=== PATIENT | female | born 1985 | race Caucasian/White ===

== ENCOUNTER 2016-08-13 11:37 | Emergency (ER) | payer MEDICAID, OTHER ==
[~2016-08-13] VITALS: Ht 170.2 cm; Wt 80.0 kg
[~2016-08-13 11:37] MED LIST: METR500T10 PO; PREN1CAP7 PO
[2016-08-13 11:39] VITALS: BP 117/57; PULSE 78; RESP 20; TEMP 98.5; O2SAT 100
--- NOTE | 2016-08-13 11:58 | PD ---
Physical Exam Date Seen by Provider: Aug 13, 2016 Time Seen by Provider: 11:54 Narrative 30 y/o female patient who states 12 weeks presents with abdominal cramping and vaginal spotting since last night. Pain is 5/10. Hx previous spontaneous miscarriage about a year ago. No fever, Chills, Nausea or Vomitting. Labs Ordered. Patients VS stable. Awaiting Bed Placement. Data Data Last Documented VS Vital Signs Date Time Temp Pulse Resp B/P Pulse Ox O2 Delivery O2 Flow Rate FiO2 08/13/16 11:39 98.5 78 20 117/57 100 Room Air [facility] Medical Record Reviewed: Yes Supervised Visit with TOSHIA: Yes Condition: Stable Celio Amado Aug 13, 2016 11:58
[2016-08-13 12:17] LABS: AUTOMATED NEUTROPHIL # 2.5 TH/MM3 (1.8-7.7); BASOPHIL % 0.2 % (0.0-2.0); EOSINOPHIL # 0.1 TH/MM3 (0-0.4); HEMATOCRIT 35.8 % (35.0-46.0); HEMO FLAGS DIFF FINAL; LYMPH % 37.6 % (9.0-44.0); LYMPHOCYTE # 1.7 TH/MM3 (1.0-4.8); MEAN CELL VOLUME 85.9 FL (80.0-100.0); MEAN CORPUSCULAR HEMOGLOBIN 29.9 PG (27.0-34.0); MEAN CORPUSCULAR HGB CONC 34.8 % (32.0-36.0); MONO % 5.8 % (0.0-8.0); NEUT % 54.4 % (16.0-70.0); PLATELET COUNT 182 TH/MM3 (150-450); RED BLOOD COUNT 4.17 MIL/MM3 (4.00-5.30); RED CELL DISTRIBUTION WIDTH 12.5 % (11.6-17.2); WHITE BLOOD COUNT 4.6 TH/MM3 (4.0-11.0)
[2016-08-13 12:35] LABS: ANION GAP 9 MEQ/L (5-15); AST (GOT) 10 U/L (15-37); BICARBONATE 26.1 MEQ/L (21.0-32.0); BLOOD UREA NITROGEN 10 MG/DL (7-18); CHLORIDE 107 MEQ/L (98-107); GLOMERULAR FILTRATION RATE 86 ML/MIN (>89); POTASSIUM 4.2 MEQ/L (3.5-5.1); SODIUM (NA) 142 MEQ/L (136-145)
[2016-08-13 12:36] LABS: ALT (GPT) 20 U/L (10-53)
[2016-08-13 12:50] LABS: BLOOD, URINE NEG (NEG); GLUCOSE,URINE NEG (NEG); KETONE, URINE NEG (NEG); NITRITE,URINE NEG (NEG); URINE COLOR LIGHT-YELLOW (YELLW/STRAW)
[2016-08-13 12:53] LABS: ALKALINE PHOSPHATASE 51 U/L (45-117); BETA HCG QUANT 4068 MIU/ML (0-5); TOTAL BILIRUBIN ADULT 0.4 MG/DL (0.2-1.0)
[2016-08-13 13:20] LABS: COMMENT (UR) CULT NOT INDICATED; CULTURE IF INDICATED CULT NOT INDICATED; SQUAMOUS EPITHELIAL CELL URINE 0-5 /hpf (0-5); WBC, URINE 0-2 /hpf (0-5)
--- NOTE | 2016-08-13 13:58 | PD ---
HPI Chief Complaint: Related Problem Time Seen by Provider: 13:30 Travel History International Travel<30 days: No Contact w/Intl Traveler<30days: No Traveled to known affect area: No History of Present Illness HPI Patient comes in complaining of lower abdominal cramping and spotting that she awoke with last night. Patient reports she is approximately 12 weeks . Reports symptoms have almost completely resolved denies any bleeding since this, but continues to have intermittent cramps. Patient denies any nausea, vomiting, chest pain, shortness breath, left change in bowel or bladder, or fevers. Patient states she has an appointment with her OB this Sunday. Patient reports gestational age based on previous ultrasound. [facility] Past Medical History Medical History: Denies Significant Hx Diminished Hearing: No Tetanus Vaccination: Never Vaccinated ?: LMP: 05/26 : 4 Para: 2 Miscarriage: 1 Past Surgical History Section: Yes (x2) Gynecologic Surgery: Yes () Social History Alcohol Use: No Tobacco Use: No (QUIT MAY 2016) Substance Use: No Allergies-Medications (Allergen,Severity, Reaction): Coded Allergies: Penicillin (Verified Allergy, Severe, hives, 08/13/16) Uncoded Allergies: CILLINS (Allergy, Severe, Hives, 11/17/11) Reported Meds & Prescriptions Reported Meds & Active Scripts Active Citranatal [place] ( W/O Vit A W/ Fe Fumar) 27-1-260 Mg Cap 1 Cap PO DAILY Review of Systems Except as stated in HPI: all other systems reviewed are Neg Physical Exam Narrative GENERAL: Well-developed, well nourished, in no acute distress, and non-ill appearing. SKIN: Focused skin assessment warm and dry. HEAD: Atraumatic. Normocephalic. EYES: Pupils equal and round. EOMI. No scleral icterus. No injection or drainage. ENT: No nasal bleeding or discharge. Mucous membranes pink and moist. NECK: Trachea midline. Supple. No nuclear rigidity. CARDIOVASCULAR: Regular rate and rhythm. No murmur appreciated. RESPIRATORY: No accessory muscle use. No respiratory distress. Clear to auscultation. Breath sounds equal bilaterally. GASTROINTESTINAL: Abdomen soft, non-tender, nondistended. Hepatic and splenic margins not palpable. Normal bowel sounds 4. No pulsatile mass. MUSCULOSKELETAL: No obvious deformities. No clubbing. No cyanosis. No edema. Full range of motion. NEUROLOGICAL: Awake and alert. No obvious cranial nerve deficits. Motor grossly within normal limits. Normal speech. PSYCHIATRIC: Appropriate mood and affect; insight and judgment normal. Data Data Last Documented VS Vital Signs Date Time Temp Pulse Resp B/P Pulse Ox O2 Delivery O2 Flow Rate FiO2 08/13/16 11:39 98.5 78 20 117/57 100 Room Air Orders Beta Hcg (Quant/Titer) (08/13/16 11:52) Complete Blood Count With Diff (08/13/16 11:52) Comprehensive Metabolic Panel (08/13/16 11:52) Type And Screen (08/13/16 11:52) Urinalysis - C+S If Indicated (08/13/16 11:52) Ed Poc Ultrasound (08/13/16 ) Labs Laboratory Tests Test 08/13/16 08/13/16 08/13/16 12:02 12:06 12:15 White Blood Count 4.6 TH/MM3 Red Blood Count 4.17 MIL/MM3 Hemoglobin 12.5 GM/DL Hematocrit 35.8 % Mean Corpuscular Volume 85.9 FL Mean Corpuscular Hemoglobin 29.9 PG Mean Corpuscular Hemoglobin 34.8 % Concent Red Cell Distribution Width 12.5 % Platelet Count 182 TH/MM3 Mean Platelet Volume 7.2 FL Neutrophils (%) (Auto) 54.4 % Lymphocytes (%) (Auto) 37.6 % Monocytes (%) (Auto) 5.8 % Eosinophils (%) (Auto) 2.0 % Basophils (%) (Auto) 0.2 % Neutrophils # (Auto) 2.5 TH/MM3 Lymphocytes # (Auto) 1.7 TH/MM3 Monocytes # (Auto) 0.3 TH/MM3 Eosinophils # (Auto) 0.1 TH/MM3 Basophils # (Auto) 0.0 TH/MM3 CBC Comment DIFF FINAL Differential Comment Sodium Level 142 MEQ/L Potassium Level 4.2 MEQ/L Chloride Level 107 MEQ/L Carbon Dioxide Level 26.1 MEQ/L Anion Gap 9 MEQ/L Blood Urea Nitrogen 10 MG/DL Creatinine 0.78 MG/DL Estimat Glomerular Filtration 86 ML/MIN Rate Random Glucose 82 MG/DL Calcium Level 8.9 MG/DL Total Bilirubin 0.4 MG/DL Aspartate Amino Transf 10 U/L (AST/SGOT) Alanine Aminotransferase 20 U/L (ALT/SGPT) Alkaline Phosphatase 51 U/L Total Protein 6.9 GM/DL Albumin 3.5 GM/DL Human Chorionic Gonadotropin, 4068 MIU/ML Quant Blood Type A POSITIVE Antibody Screen NEGATIVE Urine Color LIGHT-YELLOW Urine Turbidity CLEAR Urine pH 7.0 Urine Specific [place] 1.007 Urine Protein NEG mg/dL Urine Glucose (UA) NEG mg/dL Urine Ketones NEG mg/dL Urine Occult Blood NEG Urine Nitrite NEG Urine Bilirubin NEG Urine Urobilinogen LESS THAN 2.0 MG/DL Urine Leukocyte Esterase NEG Urine WBC 0-2 /hpf Urine Squamous Epithelial 0-5 /hpf Cells Microscopic Urinalysis Comment CULT NOT INDICATED MDM Medical Decision Making Medical Screen Exam Complete: Yes Emergency Medical Condition: Yes Interpretation(s) Bedside ultrasound was performed by Dr. Vail shows a single IUP with no heart tones. Differential Diagnosis Abdominal pain and , bleeding in , threatened miscarriage, completed miscarriage, other Narrative Course Patient presented with vaginal bleeding and lower abdominal pain and the test was positive. Ultrasound was performed and there is evidence of a developing uterine . There is no evidence to suggest ectopic , nor cervicitis, PID or torsion at this time. There was no evidence to support colitis, diverticulitis, obstruction, abdominal or femoral herniation , volvulus, early appendicitis, or hernial incarceration or strangulation at this time. Patient is stable and no clinical evidence of anemia. There is no RH incompatibility. Possibility of a threatened was discussed with the patient. The patient was instructed to follow up with OB within 3 days as scheduled, for repeat bloodwork and possible repeat sonogram, and was given contact information. She was given warnings to return if bleeding worsened, passed tissue, felt faint or passed out, fever, worsening pain, inability to tolerate fluids, or as needed. The patient agreed with plan. Patient in no obvious distress upon re-evaluation. All pertinent laboratory/ Radiology result(s) discussed with patient. Discussed patient with Dr. Vail , who saw and evaluated the patient is in agreement with plan of care and disposition. Any questions/concerns in reference to patient diagnosis/ condition discussed and clarified prior to patient's discharge. Reinforced sheer importance of close follow up with patient's OB. Instructed patient to return to ED immediately, if symptoms return/worsen. Pt showed understanding of above instructions. Further instructions and recommendations were detailed in discharge paperwork. Pt ambulated without difficulty out of ED at discharge. Diagnosis Primary Impression: Threatened miscarriage Patient Instructions: General Instructions, Miscarriage (ED), Threatened Miscarriage (ED) Additional Instructions: Follow-up with your OB on Sunday as scheduled. Your beta hCG today was 4068. Return to the emergency department if symptoms get worse, fevers, unable to tolerate fluids, severe abdominal pain, or for other concerns. Disposition: 01 DISCHARGE HOME Condition: Stable Andrew Fuentes Aug 13, 2016 13:58
== END 2016-08-13 14:51 | disposition home or self-care (01) ==
LOC: NEPD 11:37
DX: O20.0 Threatened abortion (principal); Z3A.12 12 weeks gestation of pregnancy
CPT/HCPCS: 80053; 81001; 84702; 85025; 86850; 86900; 86901; 99284